=== PATIENT | male | born 1980 | race Caucasian/White ===

== ENCOUNTER → 2020-07-27 | Outpatient (CLI) | payer SELFPAY | LOC: ZCOL.LAB 15:48 | DX: Z20.828 Contact with and (suspected) exposure to other viral communicable diseases (principal) ==

== ENCOUNTER → 2021-05-11 | Outpatient (CLI) | payer OTHER, MEDICAID | LOC: COL.RAD 07:30 | DX: M48.061 Spinal stenosis, lumbar region without neurogenic claudication (principal); M51.26 Other intervertebral disc displacement, lumbar region; M47.26 Other spondylosis with radiculopathy, lumbar region ==

== ENCOUNTER → 2021-07-31 | Outpatient (CLI) | payer OTHER ==
[~2021-07-31] VITALS: Ht 188 cm; Wt 115.7 kg
[2021-07-31 09:56] VITALS: BP 134/92; PULSE 75; TEMP 98.4
[2021-07-31 10:55] VITALS: BP 137/90; PULSE 70
== END ==
LOC: COL.RAD 07-25 13:00
DX: M54.16 Radiculopathy, lumbar region (principal); V87.7XXA Person injured in collision between other specified motor vehicles (traffic), initial encounter
CPT/HCPCS: J3301

== ENCOUNTER 2021-10-25 13:45 | Outpatient (RCR) | payer OTHER | END 2021-10-27 | disposition home or self-care (01) | LOC: PT.GENESIS | DX: M48.061 Spinal stenosis, lumbar region without neurogenic claudication (principal) ==

== ENCOUNTER → 2023-03-08 | Outpatient (CLI) | payer MEDICAID | LOC: COL.RAD 15:27 | DX: K76.0 Fatty (change of) liver, not elsewhere classified (principal) ==